=== PATIENT | male | born 1990 | race African-American/Black ===

== ENCOUNTER 2020-10-04 09:23 | Emergency (ER) | payer OTHER, BC, SELFPAY ==
[2020-10-04 10:02] VITALS: BP 129/72; PULSE 56; RESP 16; TEMP 36.2; O2SAT 99
[2020-10-04 10:07] VITALS: BP 129/72; PULSE 56; RESP 16; TEMP 36.2; O2SAT 99
--- NOTE | 2020-10-04 10:26 | ED.BACK ---
HPI - Back Pain/Injury General Chief Complaint: Back Pain/Injury Stated Complaint: back pain Source: patient and RN notes reviewed Limitations: no limitations History of Present Illness HPI Narrative: The patient, previously mostly healthy, presents with back pain. Patient states he works at a local [employer] [[employer]], and was lifting cases of water. He has mild pain at left upper & mid back, that was worse with motion, better at rest. No prior/pre-existing pain, direct trauma, numbness/weakness, radiating pain,; cough, S OB, loss of taste/smell, CP, no dysuria/ hematuria/frequency. Related Data Allergies Allergy/AdvReac Type Severity Reaction Status Date / Time cinnamon Allergy Severe Swelling Verified 12/14/18 18:05 savannah Allergy Severe Swelling Verified 12/14/18 18:05 crab seafood Allergy Unknown Uncoded 01/30/18 18:12 Review of Systems Review of Systems: Narrative: General/Constitutional: No weight loss,fever Eyes: N0: Redness,discharge Ears/Nose/Throat: No: Epistaxis,ear discharge Respiratory: Denies: Hemoptysis Gastrointestinal: No Vomiting, Bleeding-rectal Skin: No Lumps, eruption Neurologic: No Focal Weakness,Sz Hematologic: Denies: Petechiae/Purpura Psychiatric: No: Suicida ideationl All Other Systems: Reviewed and Negative PMFSH Comments At time of signature, agree with nursing past medical, surgical, social and family history. There is no relevant family history pertinent to the presenting complaint Exam Narrative: Exam Narrative: General Appearance: Well appearing, Well nourished, Conjunctiva clear Mouth/Throat: Normal appearing, Normal lips, Supple Respiratory: Airway patent Abdomen: Soft Musculoskeletal: Normal strength (no footdrop, 5/5 :Bi/Tri, no saddle weakness) Spine/Back: Paraspinal muscle tender (with mild decreased range of motion at left rhomboid and trap) Skin: Normal color Neurological: A&O x3, CN II-XII intact, Normal reflexes (symmetric, 2+Bi/Tri) Psychiatric: Normal mood Course Vital Signs Vital signs: Vital Signs Temperature 97.1 F L 10/04/20 10:02 Pulse Rate 56 L 10/04/20 10:02 Respiratory Rate 16 10/04/20 10:02 Blood Pressure 129/72 10/04/20 10:02 Pulse Oximetry 99 10/04/20 10:02 Temperature 97.1 F L 10/04/20 10:07 Pulse Rate 56 L 10/04/20 10:07 Respiratory Rate 16 10/04/20 10:07 Blood Pressure 129/72 10/04/20 10:07 Pulse Oximetry 99 10/04/20 10:07 Discharge Plan Discharge Clinical Impression: Muscle strain of left upper back Qualifiers: Encounter type: initial encounter Qualified Code(s): S29.012A - Strain of muscle and tendon of back wall of thorax, initial encounter Patient Disposition: Home, Self-Care Condition: Stable Instructions: Thoracic Back Strain (ED) Prescriptions: New tramadol 50 mg tablet 50 mg PO Q6H PRN (Reason: pain) Qty: 15 RF: 1 Follow-up/Referrals: UNKNOWN,DOCTOR [Primary Care Provider] - Stand Alone Forms: Work/School Release IP
== END 2020-10-04 10:30 | disposition home or self-care (01) ==
PROVIDERS: Emergency Provider Emergency Medicine
DX: S29.012A Strain of muscle and tendon of back wall of thorax, initial encounter (principal); X50.0XXA Overexertion from strenuous movement or load, initial encounter; X50.9XXA Other and unspecified overexertion or strenuous movements or postures, initial encounter; Y99.0 Civilian activity done for income or pay
CPT/HCPCS: 99213; G0463

== ENCOUNTER 2023-05-31 10:18 | Emergency (ER) | payer BC, SELFPAY ==
[2023-05-31 10:35] VITALS: BP 137/103; PULSE 54; RESP 16; TEMP 36.6; O2SAT 99
--- NOTE | 2023-05-31 10:50 | ED.GENADULT ---
HPI - General Adult General Chief complaint: Extremity Problem,Nontraumatic Stated complaint: both legs,calves and legs hurt Time Seen by Provider: 05/31/23 10:51 Source: patient Mode of arrival: ambulatory Limitations: no limitations History of Present Illness HPI narrative: 33 yo M presents with c/o back to both calves for 2 to 3 days. Was off work for a week of vacation and recently went back. States she he works at a very busy [employer]. normally works evenign shift. Worked at evening shift and then had to be back at work the next morning with very little sleep. began having pain to both calves. feels very tight when walking . no pain at rest. No color change or swelling. Took ibuprofen and pain improved. Thinks pain related to beign off for vacation and then going back to work for busy shifts, up on feet a lot. Needs work note for missing work today. ambulatory with steady gait. All systems reviewed and negative except as noetd above. Related Data Allergies Allergy/AdvReac Type Severity Reaction Status Date / Time cinnamon Allergy Severe Swelling Verified 05/31/23 10:32 savannah Allergy Severe Swelling Verified 05/31/23 10:32 crab seafood Allergy Unknown Other Uncoded 05/31/23 10:32 Review of Systems Review of Systems: CONSTITUTIONAL: Denies fever, chills, or sweats. EYES: Denies visual changes, redness, or discharge. ENT: Denies rhinorrhea, congestion, sore throat, or otalgia. CARDIOVASCULAR: Denies chest pain, palpitations, or edema. RESPIRATORY: Denies cough or dyspnea. GASTROINTESTINAL: Denies abdominal pain, nausea, vomiting, or diarrhea. GENITOURINARY: Denies dysuria or hematuria. SKIN: Denies rash or itching. MUSCULOSKELETAL: Denies back pain, joint pain. reports pain to bilateral calves. NEUROLOGIC: Denies headache, numbness, or weakness. PSYCHIATRIC: Denies anxiety or depression. All other systems reviewed are negative, except as documented in HPI. PMFSH Comments At time of signature, agree with nursing past medical, surgical, social and family history. There is no relevant family history pertinent to the presenting complaint. Exam Narrative: GENERAL: This is a well-nourished, well-developed patient, in no apparent distress. HEAD: normocephalic, atraumatic. EYES: PERRL. Sclera clear/white. Vision is grossly intact. EARS: External ears normal NOSE: External nose normal NECK: Neck supple, non-tender without lymphadenopathy, masses or thyromegaly. CARDIOVASCULAR: Regular rate and rhythm without murmurs, gallops, or rubs. RESPIRATORY: Clear to auscultation. Breath sounds equal bilaterally. No wheezes, rales, or rhonchi. SKIN: warm, Dry, intact with no suspicious lesions or rash, good texture and turgor. NEURO: awake, alert, and oriented to person, place and time. There were no obvious focal neurologic abnormalities. EXTREMITIES: No joint tenderness, effusion, or edema noted. No calf tenderness. Negative Homans sign bilaterally. Course Course Level of Care: Express Care Visit Vital Signs Vital signs: Vital Signs Temperature 36.6 C 05/31/23 10:35 Pulse Rate 54 L 05/31/23 10:35 Respiratory Rate 16 05/31/23 10:35 Blood Pressure 137/103 H 05/31/23 10:35 Pulse Oximetry 99 05/31/23 10:35 Oxygen Delivery Room Air 05/31/23 10:35 Temperature 36.6 C 05/31/23 10:35 Pulse Rate 54 L 05/31/23 10:35 Respiratory Rate 16 05/31/23 10:35 Blood Pressure 137/103 H 05/31/23 10:35 Pulse Oximetry 99 05/31/23 10:35 Oxygen Delivery Room Air 05/31/23 10:35 reviewed Medical Decision Making MDM Narrative Medical decision making narrative: exam findings normal. Recommend ibuprofen, rest, stretching. Recommend follow-up with primary care physician for outpatient labs if not improving. Patient is aware of diagnosis, understands and agrees to treatment plan. Anticipatory guidance given. Patient agrees to follow-up as directed and is aware of reasons to seek care at the em
== END 2023-05-31 11:04 | disposition home or self-care (01) ==
PROVIDERS: Emergency Provider Nurse Practitioner Family
DX: M79.662 Pain in left lower leg (principal); M79.661 Pain in right lower leg
CPT/HCPCS: 99212; G0463

== ENCOUNTER 2023-06-19 08:34 | Emergency (ER) | payer BC, SELFPAY ==
--- NOTE | 2023-06-19 08:36 | ED.URI ---
HPI - URI/Sore Throat General Chief Complaint: Upper Respiratory Infection Stated Complaint: sore throat,congestion,RSV exposure Time Seen by Provider: 06/19/23 08:52 Source: patient, RN notes reviewed and old records reviewed Mode of arrival: ambulatory Limitations: no limitations History of Present Illness HPI Narrative: 33-year-old male presents to the [facility] with complaints of a sore throat, congestion and fatigue. States symptoms started 3 days ago. States that he was exposed RSV. Patient has not taken anything to help with the symptoms. Denies fevers, chest pain, abdominal pain. Requesting a work note Onset (ago): day(s) (3) Related Data Allergies Allergy/AdvReac Type Severity Reaction Status Date / Time cinnamon Allergy Severe Swelling Verified 06/19/23 08:38 savannah Allergy Severe Swelling Verified 06/19/23 08:38 crab seafood Allergy Unknown Other Uncoded 05/31/23 10:32 Review of Systems Review of Systems: All systems reviewed & are unremarkable except as noted in HPI and below Constitutional: Constitutional: Reports as per HPI and Reports fatigue Eyes: Eyes: Reports no additional eye complaints ENT: Reports as per HPI, Reports nasal congestion and Reports sore throat Cardiovascular: Cardiovascular: Reports no additional cardiovascular complaints, Denies chest pain and Denies dyspnea Respiratory: Respiratory: Reports no additional respiratory complaints, Denies chest congestion, Denies cough and Denies dyspnea Gastrointestinal: Gastrointestinal: Reports no additional gastrointestinal complaints, Denies abdominal pain, Denies nausea and Denies vomiting Musculoskeletal: Musculoskeletal: Reports no additional musculoskeletal complaints Integumentary/Breasts: Skin/Breast: Reports system reviewed and no additional complaints, except as docu Neurologic: Reports system reviewed and no additional complaints, except as documented Psychiatric: Psychiatric: Reports no additional psychiatric complaints Allergic/Immunologic: Allergic/Immunologic: Reports no additional allergic/immunologic complaints PMFSH Past Medical History Medical History (Updated 06/19/23 @ 09:01 by Vicky Mckeon APRN) Patient denies medical problems Surgical History Surgical History (Updated 06/19/23 @ 08:58 by Vicky Mckeon APRN) No pertinent past surgical history Social History Social History (Updated 06/19/23 @ 08:58 by Vicky Mckeon APRN) Living arrangements: with family Gender identity (if verbalized by the patient): Male Comments At the time of my signature, I reviewed and agree with the nursing past medical, surgical, social, and family history. There is no relevant family history pertinent to the patient complaint. Exam Const: General: cooperative, healthy appearing, comfortable, no acute distress, well developed, alert and well nourished Nutritional Appearance: well nourished Orientation/consciousness: patient oriented x3 Limitations: no limitations HENMT: Head: normal to inspection Ears: hearing grossly normal bilaterally, external ears normal, TM's normal bilaterally, EAC's normal, mastoids normal and no periauricular adenopathy Face/Nose/Sinus: Normal external nose present, Normal nares present, Normal nasal mucous membranes and turbinates present, normal facial exam and face symmetric Face and sinus: normal facial exam, sinuses nontender and face symmetric Mouth: Yes Normal oral and palatal mucosa present, Yes lip normal, Yes tongue normal and Yes moist mucous membranes Throat: posterior oropharynx normal, tonsils normal, uvula midline and postnasal drainage Eyes: General: appearance normal, both eyes and all related structures Alignment and Position: alignment normal Periorbital: periorbital findings normal Pupils: Equal, round and reactive pupils present EOM: EOMs intact bilaterally Neck: Neck: normal visual inspection, full ROM, no lymphadenopathy and no meningeal signs Chest: Chest palpation & in
[2023-06-19 08:49] VITALS: BP 124/78; PULSE 63; RESP 16; TEMP 36.5; O2SAT 99
== END 2023-06-19 09:04 | disposition home or self-care (01) ==
PROVIDERS: Emergency Provider Nurse Practitioner
DX: B34.9 Viral infection, unspecified (principal)
CPT/HCPCS: 99211; G0463